=== PATIENT | female | born 1975 | race American Indian/Alaskan Native ===

== ENCOUNTER 2016-05-06 22:33 | Emergency (ER) | payer OTHER ==
[2016-05-06 23:49] VITALS: BP 92/70
[2016-05-07 00:14] LABS: Basophils % (Auto) 0.6 % (0.0-1.8); Eosinophils % (Auto) 2.2 % (0.0-4.3); Hematocrit 40.2 % (30.3-42.9); Hemoglobin 13.1 gm/dl (10.1-14.3); Mean Corpuscular HGB Conc 33 % (30-34); Mean Corpuscular Hemoglobin 28 pg (28-32); Mean Corpuscular Volume 87 fl (79-97); Platelet Count 251 K/mm3 (140-440); Red Blood Count 4.62 M/mm3 (3.65-5.03); Red Cell Distribution Width 14.2 % (13.2-15.2); White Blood Count 7.9 K/mm3 (4.5-11.0)
[2016-05-07 00:58] LABS: Alanine Aminotransferase 14 units/L (7-56); Albumin 3.8 g/dL (3.9-5); Albumin/Globulin Ratio 1.2 %; Alkaline Phosphatase 56 units/L (35-129); Anion Gap 13 mmol/L; BUN/Creatinine Ratio 8.57; Bilirubin,Total 0.2 mg/dL (0.1-1.2); Blood Urea Nitrogen 6 mg/dL (7-17); Calcium 8.9 mg/dL (8.4-10.2); Carbon Dioxide 26 mmol/L (22-30); Chloride 102.7 mmol/L (98-107); Glucose 88 mg/dL (65-100); Lipase 28 units/L (13-60); Potassium 3.8 mmol/L (3.6-5.0); Sodium 138 mmol/L (137-145)
--- NOTE | 2016-05-10 01:33 | ED Elopement Review ---
ED Pt Elopement review - Results review Lab results: Laboratory Tests 05/07/16 05/07/16 05/07/16 00:00 00:00 00:00 WBC 7.9 RBC 4.62 Hgb 13.1 Hct 40.2 MCV 87 MCH 28 MCHC 33 RDW 14.2 Plt Count 251 Lymph % (Auto) 17.8 [place] % (Auto) 8.2 H Eos % (Auto) 2.2 Baso % (Auto) 0.6 Lymph # 1.4 [place] # 0.6 Eos # 0.2 Baso # 0.0 Seg Neutrophils % 71.2 H Seg Neutrophils # 5.6 Sodium 138 Potassium 3.8 Chloride 102.7 Carbon Dioxide 26 Anion Gap 13 BUN 6 L Creatinine 0.7 Estimated GFR > 60 BUN/Creatinine Ratio 8.57 Glucose 88 Calcium 8.9 Total Bilirubin 0.2 AST 19 ALT 14 Alkaline Phosphatase 56 Total Protein 7.0 Albumin 3.8 L Albumin/Globulin Ratio 1.2 Lipase 28 HCG, Qual Negative - Call Back decision Pt Call Back Decision: Pt to F/U with PMD
== END 2016-05-07 04:55 | disposition left against medical advice (07) ==
LOC: ED 22:33
DX: R10.9 Unspecified abdominal pain (principal); Z53.21 Procedure and treatment not carried out due to patient leaving prior to being seen by health care provider
CPT/HCPCS: 36415; 80053; 83690; 84703; 85025